=== PATIENT | male | born 1960 | race Caucasian/White ===

== ENCOUNTER 2024-04-22 12:28 | Outpatient (OUT) | payer OTHER, SELFPAY ==
--- NOTE | 2024-04-22 13:00 | PM.PRESUREVA ---
History of Present Illness History of Present Illness Chief complaint: Left Ureteral Stone with Hydronephrosis Narrative: Patient presents for presurgical testing. The patient reports new onset of kidney stones which started in November of this year and he has had 2 procedures with a ureteral stent. He states he does have mild aching from the stent, frequency with urination, but denies hematuria. He takes ibuprofen and Tylenol as needed to help with any discomfort. Review of Systems ROS Narrative REVIEW OF SYSTEMS: Negative except as stated in HPI, ten or more systems reviewed. Constitutional: No fever, chills, weakness ENT: No sore throat or epistaxis Cardiovascular: No edema, chest pain, palpitations, or activity intolerance Respiratory: No shortness of breath, cough, or wheezing Musculoskeletal: No joint pain or swelling Gastrointestinal: No abdominal pain, constipation, diarrhea, or vomiting Neurological: No numbness, tingling, weakness, or headache Psychiatric: No mood changes PFSH [facility] Medical History (Updated 04/22/24 @ 12:48 by Crissy Mullins NP) Arthritis ?M19.90 - Unspecified osteoarthritis, unspecified site (ICD-10) Femur fracture ?S72.90XA - Unspecified fracture of unspecified femur, initial encounter for closed fracture (ICD-10) Epigastric pain ?R10.13 - Epigastric pain (ICD-10) Cholelithiasis ?K80.20 - Calculus of gallbladder without cholecystitis without obstruction (ICD-10) Lumbar radiculopathy ?M54.16 - Radiculopathy, lumbar region (ICD-10) Knee osteoarthritis ?M17.9 - Osteoarthritis of knee, unspecified (ICD-10) H. pylori infection ?A04.8 - Other specified bacterial intestinal infections (ICD-10) Fatigue ?R53.83 - Other fatigue (ICD-10) Depression ?F32.A - Depression, unspecified (ICD-10) GERD (gastroesophageal reflux disease) ?K21.9 - Gastro-esophageal reflux disease without esophagitis (ICD-10) Anxiety ?F41.9 - Anxiety disorder, unspecified (ICD-10) Ureteral stone with hydronephrosis ?N13.2 - Hydronephrosis with renal and ureteral calculous obstruction (ICD-10) S/P extracorporeal shock wave therapy (01/20/24) ?Z98.890 - Other specified postprocedural states (ICD-10) Surgical History (Updated 04/22/24 @ 13:00 by Crissy Mullins NP) History of open reduction and internal fixation (ORIF) procedure ?Z98.890 - Other specified postprocedural states (ICD-10) S/P ureteral stent placement ?Z96.0 - Presence of urogenital implants (ICD-10) History of cholecystectomy ?Z90.49 - Acquired absence of other specified parts of digestive tract (ICD-10) History of esophagogastroduodenoscopy (EGD) ?Z98.890 - Other specified postprocedural states (ICD-10) H/O cystoscopy ?Z98.890 - Other specified postprocedural states (ICD-10) Social History (Updated 04/22/24 @ 12:43 by Crissy Mullins NP) Within the past year, how often did you have a drink containing alcohol: 4 or more times a week Within the past year, how many standard drinks containing alcohol did you have on a typical day: 3 or 4 Smoking status: Never smoker Non-prescribed substance use: denies use Previous occupational history: Self-employed Highest level of school completed/degree received: high school graduate Meds Home Medications and Allergies Home Medications ?Medication ?Instructions ?Recorded ?Confirmed ?Type robinson (Zingiber officinalis) 250 250 mg PO DAILY 04/22/24 04/22/24 History mg capsule nnypqjdb-lsd-xsgliscti-C-hyaluronic tab PO 04/22/24 History 500 mg-300 mg-400 mg-10 mg tablet ibuprofen 400 mg tablet (IBU) 400 mg PO Q6H 04/22/24 04/22/24 History omeprazole 20 mg capsule,delayed 20 mg PO DAILY 04/22/24 04/22/24 History release turmeric 400 mg capsule mg PO 04/22/24 History Allergies Allergy/AdvReac Type Severity Reaction Status Date / Time No Known Drug Allergies Allergy Verified 04/22/24 12:41 Exam Narrative Exam Narrative: Constitutional: Awake, alert, comfortable, well-appearing, nontoxic, interactive, vital signs as charted Head: Normocephalic, atraumatic Neck: Supple, normal appearance, normal range of motion, no meningeal signs, no lymphadenopathy Respiratory: No respiratory distress, breath sounds clear Cardiovascular: Regular rate and rhythm, strong and regular heart tones Abdomen: Nontender, normal bowel sounds, soft, no CVA tenderness Musculoskeletal: Normal gait, no swelling or edema Skin: No rashes or induration, no lesions, only visible skin inspected Neuro: No neurological deficits, normal sensation Psychiatric: Oriented ?3, normal affect Assessment and Plan Assessment and Plan (1) Ureteral stone with hydronephrosis: (2) S/P ureteral stent placement: Plan Cystoscopy, left ureteroscopy, laser lithotripsy, left stent removal versus exchange scheduled with Dr. Villanueva May 12, 2024.
[2024-04-22 13:11] LABS: Anion Gap 10.8; BUN Creatinine Ratio 17.3; Basophils Absolute Auto 0.1 10^3/uL (0.0-0.1); Basophils Percent Auto 1.6 % (0.2-2.0); Calcium 8.8 mg/dL (8.5-10.1); Carbon Dioxide 25.5 mmol/L (21.0-32.0); Chloride 107 mmol/L (98-107); Eosinophils Absolute Auto 0.2 10^3/uL (0.0-0.7); Eosinophils Percent Auto 3.2 % (0.9-7.0); Estimated GFR (African America >60 (>=60 mL/min/1.73m^2); Estimated GFR (Non-African Ame >60 (>=60 mL/min/1.73m^2); Glucose 139 mg/dL (74-106); Hematocrit 47.9 % (42.0-54.0); Hemoglobin 16.5 g/dL (14.0-18.0); Immature Granulocytes Abs Auto 0.01 10^3/uL (0.00-0.03); Immature Granulocytes Pct Auto 0.2 % (0.0-0.5); Lymphocytes Absolute Auto 1.7 10^3/uL (1.2-3.8); Lymphocytes Percent Auto 33.5 % (20.5-60.0); Mean Corpuscular HGB Conc 34.4 g/dL (29.9-35.2); Mean Corpuscular Hemoglobin 32.2 pg (25.9-34.0); Mean Corpuscular Volume 93.4 fL (80.0-94.0); Mean Platelet Volume 10.1 fL (9.5-13.5); Monocytes Absolute Auto 0.3 10^3/uL (0.3-0.8); Monocytes Percent Auto 6.8 % (1.7-12.0); Neutrophils Absolute Auto 2.7 10^3/uL (1.4-6.5); Neutrophils Percent Auto 54.7 % (43.0-75.0); Platelet Count 158 10^3/uL (150-450); Potassium 4.3 mmol/L (3.5-5.1); Red Blood Count 5.13 10^6/uL (4.70-6.10); Red Cell Distribution Width 12.6 % (11.0-15.0); Sodium 139 mmol/L (136-145)
[2024-04-22 13:36] LABS: INR 0.99; Partial Thromboplastin Time 27.6 sec (22.3-36.2); Prothrombin Time 10.5 sec (9.0-11.6)
[2024-04-22 13:59] LABS: Bilirubin Urine NEGATIVE (NEGATIVE); Blood Urine MODERATE (NEGATIVE); Clarity Urine CLEAR (CLEAR); Color Urine LT. YELLOW (YELLOW); Glucose Urine UA NEGATIVE (NEGATIVE); Ketones Urine NEGATIVE (NEGATIVE); Leukocyte Esterase Urine TRACE (NEGATIVE); Nitrite Urine POSITIVE (NEGATIVE); Protein Urine NEGATIVE (NEG/TRACE); Urobilinogen Urine 0.2 EU/dL (0.2-1.0); pH Urine 6.5 (5.0-9.0)
[2024-04-22 14:23] LABS: Urine Microscopic Indicated YES
[2024-04-22 14:25] LABS: Bacteria Urine TRACE #/HPF (NONE SEEN); Mucus Urine NONE SEEN (NONE SEEN); Squamous Epithelial Cell Urine FEW #/LPF (NONE/RARE)
[2024-04-22 14:26] LABS: Urine Culture Indicated YES
== END 2024-04-22 12:29 | disposition home or self-care (01) ==
PROVIDERS: Visit Provider Urology
DX: Z01.812 Encounter for preprocedural laboratory examination (principal); Z01.818 Encounter for other preprocedural examination; N20.1 Calculus of ureter
CPT/HCPCS: 80048; 81001; 85025; 85610; 85730; 87086; G0463

== ENCOUNTER 2024-05-12 12:59 | Day surgery (SDC) | payer BC, SELFPAY ==
[2024-04-22 12:56] VITALS: BP 122/82; PULSE 78; TEMP 36.4; O2SAT 97; BMI 28.5
[2024-05-12] VITALS (12 sets, daily range): BP systolic 111–137; BP diastolic 55–86; PULSE 72–90; TEMP 36.2–36.4; O2SAT 92–99; BMI 28.6
--- NOTE | 2024-05-12 | XR_ITS ---
[address] [address] Patient Name: ROMAN RAZO MRN: [id number] date: 1960 Sex: M Assigned Patient Location: [facility] Current Patient Location: Accession/Order Number: [id number] Exam Date: 05/12/2024 15:00 Report Date: 05/13/2024 07:12 At the request of: JOSE ARMANDO RUTLEDGE Procedure: XR urethrogram retrograde EXAM: XR urethrogram retrograde HISTORY: Kidney stone COMPARISON: None. TECHNIQUE: 10.2 mgy. Single image. FINDINGS: Single image demonstrates a small amount of contrast in the left renal collecting system. Left normally positioned normally formed double-J ureteral stent XR/XR urethrogram retrograde IMPRESSION: Left ureteral stent Electronically authenticated by: TATI PLEITEZ Date: 05/13/2024 07:12
[2024-05-12] MEDS: LACTATED RINGER'S SOLUTION 1,000 ML 50 ML IV ×2 (13:29→16:14)
[2024-05-12] MEDS: CEFAZOLIN SODIUM 2 GM/50 ML D5W PREMIX IV (14:45)
[2024-05-12] MEDS: IOHEXOL 240 MG/ML - 50 ML VIAL INJ (16:50)
--- NOTE | 2024-05-12 17:26 | PM.URSON ---
Urology Surgery Operative Note Operative Note Procedure Date: 05/12/24 Time Out Performed: yes Pre-op Diagnosis: 1. Left ureteral stone 2. Left ureteral stent Post-op Diagnosis: other (1. Left ureteral stone, 2. Encrusted left ureteral stent, 3. Meatal stenosis ) Procedures performed: 1. Cystoscopy, left retrograde pyelogram, ureteroscopy laser lithotripsy/stone extraction, stent exchange 2. Laser lithotripsy of encrusted left ureteral stent 3. Meatal dilation Anesthesia: General-LMA (Dr. Bradley ) Primary Surgeon: Gina Villanueva Complications: none Estimated blood loss (mL): 0 Findings: Meatal stenosis ~ 20Fr dilated to 26Fr. Moderate bilobar prostatic hypertrophy. 1+ trabeculated bladder. Severely encrusted variable length left indwelling stent involving all bladder curls, renal pelvis curls and intermittent areas along ureter. Laser lithotripsy of encrusted stent needed to remove. L URS basket extraction of residual stent calcifications and kidney stone. Residual fluffy soft white debris and small fragments < 2 mm L RPG- mild hydronephrosis, no extravasation of contrast Specimens: left kidney stone Drains: 6Fr x 24 cm JJ left ureteral stent Incision: none Indications for Procedures: 63 year old male with a history of a 1.6x 1.2 left UPJ stone s/p ureteral stent placement on 11/05/23, L ESWL stent exchange 01/20/2024 who presents today for completion treatment of stone via left ureteroscopy with laser lithotripsy, delayed due to patient. Risks were discussed including but not limited to bleeding, pain, infection, damage to surrounding structures, inability to treat the stone, and need for additional procedures. The patient understands the stent is not permanent and needs to be removed or exchanged within 3 months to prevent encrustation, infection, invasive procedures and/or permanent renal damage. Detailed description of Procedure: After informed consent was obtained, the patient was brought to the operating room and transferred onto the operating table in supine position. Sequential compression devices were placed on bilateral lower extremities. The patient received the appropriate dose of preoperative IV antibiotics and general anesthesia was induced. They were positioned in modified dorsolithotomy with the appropriate pressure points padded, prepped, and draped in the usual sterile fashion for this procedure. An operative safety timeout was performed confirming the patient's identity, laterality and procedure, and all present agreed to proceed. I began by inserting a 22 Slovenian rigid cystoscope with 30 degree lens into the patient's urethra and bladder without difficulty. There were no bladder tumors, lesions. Bilateral ureteral orifices were orthotopic and patent. Flexible graspers through the cystoscope were used to try and breakaway stent encrustation. However, the calcifications were too severe. A 275 micron thulium yag laser fiber was used to remove the stent calcifications, this added significant time to the procedure. The ureteral portion did not appear encrusted however on attempted removal, resistance was met. A semirigid ureteroscope was inserted along the stent and encrustations were lasered off along the stent. The renal pelvis was reached and the proximal curls were lithotripsed to render the stent free. The ureteroscope was removed and the cystoscope was replaced. The stent was grasped and removed from the patient. A hybrid guidewire was inserted into the left UO and advanced up to the kidney, confirmed on fluoroscopy. The semirigid ureteroscope was inserted alongside the wire, using 1.8 zero tip basket to remove any significant debris and stent calcifications. Once the ureter was cleared, the ureteroscope was removed. An 11/13 Slovenian by 36 cm ureteral access sheath was inserted over the wire in a sequential fashion to gain access to the renal pelvis. Next a flexible ureteroscope was inserted through the sheath and advanced to the renal pelvis. All significant fragments and debris were basket extracted, this took extensive time given burden. The kidney stone was laser lithotripsied and basket extracted. After the stone was adequately treated, a full renoscopy was performed confirming no significant residual stones or fragments remained. After extensive time near 2 hours, soft debris from stent was left behind and few small fragments. Contrast was injected to assist with mapping for the renoscopy. The wire was reinserted and a pull down ureteroscopy was performed confirming no stones remained in the ureter. Contrast was injected for retrograde pyelogram confirming no extravasation of contrast. The wire was backloaded through the cystoscope and 6 Fr x 24 cm JJ ureteral stent was advanced over the wire, noting adequate curl in the renal pelvis and bladder on fluoroscopic and direct visualization. The bladder was irrigated until clear and inspected one final time to ensure adequate position of stent and no undue trauma to the bladder was done. Sample of stone was sent for pathology and the cystoscope was removed. The patient tolerated the procedure well without complication. The patient was awakened from anesthesia and sent to PACU in stable condition. Plan: Discharge home. Follow up in 2 weeks in-office cystoscopy, stent removal. Findings and plan of care discussed with daughter, who opted not to obtain f/u CT scan to confirm no significant stones remained prior to stent removal, anticipate pt passing smaller fragments/debris. Given history of retained stent, agree to proceed with stent removal. Other Provider present: No Post Operative care instructions: See discharge instructions Attending Doc Confirm Attending Attestation: Yes
[2024-05-12] MEDS: PHENAZOPYRIDINE 100 MG TABLET 200 MG PO (18:19)
[2024-05-18 07:09] LABS: Calcium phosphate (hydroxyl) 100 % (.); Size 4x3 mm (.)
== END 2024-05-12 18:36 | disposition home or self-care (01) ==
PROVIDERS: Visit Provider Urology
PROC: (CPT 918; principal; 2024-05-12 14:20)
DX: N13.2 Hydronephrosis with renal and ureteral calculous obstruction (principal); K21.9 Gastro-esophageal reflux disease without esophagitis; N35.911 Unspecified urethral stricture, male, meatal; Z90.49 Acquired absence of other specified parts of digestive tract
CPT/HCPCS: 52356; 36415; 74420; 82365; 99999; J0690; J1100; J1885; J2250; J2405; J2704; J3010; Q9966